=== PATIENT | female | born 1975 | race Caucasian/White ===

== ENCOUNTER 2021-03-19 11:44 | Day surgery (SDC) | payer OTHER, SELFPAY ==
[~2021-03-19] VITALS: Ht 157.5 cm; Wt 62.6 kg
[2021-03-19 12:14] LABS: HCG,QUAL RESULT NEGATIVE (NEGATIVE)
[2021-03-19] MEDS ORDERED: SEVOFLURANE 15 MIN GAS INH ONE (13:00)
[2021-03-19] MEDS ORDERED: KETOROLAC TROMETHAMINE 30 MG VIAL IVP ONE (13:00)
[2021-03-19] MEDS ORDERED: LR 500 ML IV.SOLN IV ONE (13:00)
[2021-03-19] MEDS ORDERED: ONDANSETRON HCL 4 MG/2 ML VIAL IVP ONE (13:00)
[2021-03-19] MEDS ORDERED: BUPIVACAINE /EPINEPHRINE/PF 0.5% 30 ML VIAL INJ ONE (13:00)
[2021-03-19] MEDS ORDERED: LIDOCAINE 2%, 20 ML MDV IM ONE (13:00)
[2021-03-19] MEDS ORDERED: METOCLOPRAMIDE HCL 10 MG/2 ML VIAL IVP ONE (13:00)
[2021-03-19] MEDS ORDERED: NS IRRIG SOLN 1000 ML IR ONE (13:00)
[2021-03-19] MEDS ORDERED: PROPOFOL 200MG/ 20ML VIAL (DIPRIVAN) IV ONE (13:00)
[2021-03-19] MEDS ORDERED: GLYCOPYRROLATE 0.2 MG/ML VIAL IJ ONE (13:00)
[2021-03-19] MEDS ORDERED: fentaNYL CITRATE/PF 100 MCG/2 ML AMP IVP ONE (13:00)
[2021-03-19] MEDS ORDERED: MIDAZOLAM HCL 5 MG/5 ML VIAL IVP ONE (13:00)
[2021-03-19] MEDS ORDERED: KETOROLAC TROMETHAMINE 30 MG VIAL IVP PRN ×2 (13:45)
[2021-03-19] MEDS ORDERED: LR 1,000 ML IV SCH (13:45)
[2021-03-19] MEDS ORDERED: ONDANSETRON HCL 4 MG/2 ML VIAL IVP PRN (13:45)
[2021-03-19 15:03] VITALS: BP_SYST 112
== END 2021-03-19 15:20 | disposition home or self-care (01) ==
LOC: SDS 11:44 → SMU 11:45 → SDS 15:20
PROVIDERS: ATTEND Orthopaedic Surgery
DX: G56.01 Carpal tunnel syndrome, right upper limb (principal); Z20.828 Contact with and (suspected) exposure to other viral communicable diseases; Z79.899 Other long term (current) drug therapy
CPT/HCPCS: 64721; 84703; J1885; J2001; J2250; J2405; J2704; J2765; J3010; J3490 ×2; J7120; U0003